=== PATIENT | female | born 1965 | race African-American/Black ===

== ENCOUNTER 2016-09-15 12:47 | Observation (INO) | payer OTHER ==
[~2016-09-15] VITALS: Ht 157.5 cm; Wt 133.7 kg
[~2016-09-15 12:47] MED LIST: ACCOLATE20 MG PO; ALEVE220 MG PO; AMBIEN10 MG PO; ATORVASTATIN CA40 MG PO; ATRIPLA TABLET1 EACH PO; CEFDINIR300 MG PO; CELEXA40 MG PO; COMBIGAN O20 DROP/5 BOTH EYES; DEPRESSION MED; DOXEPIN HCL150 MG PO; ENDOCET 5-3251 EACH PO; ERGOCALCIF50000 UNIT PO; FENOFIBRATE160 M1 PO; FETZIMA40 MG PO; FETZIMA80 MG PO; HUMULIN N100 UNIT/2 SC; IBUPROFEN800 MG PO; INDOCIN25 MG PO; IRON325 M1 PO; LEVAQUIN500 MG PO; LEVEMIR FL100 UNIT/1 SC; LEVOTHYROXINE125 MCG PO; LIDODERM 5% P1 PATCH TD; MORPHINE SULFAT30 M2 PO; MS CONTIN,ORAMO30 MG PO; OMEPRAZOLE20 M2 PO; OMEPRAZOLE20 MG PO; PERCOCET 5/31 TABLET PO; PREDNISONE50 MG PO; PROAIR HFA8.5 GM IH; PROVENTIL,2.5 MG/0.5 IH; PYRIDIUM200 MG PO; RISPERDAL2 MG PO; RISPERIDONE1 MG PO; ST. JOSEPH ASPI81 MG PO; TRAVATAN Z5 ML BOTH EYES; TRAVOPROST 0.02.5 ML BOTH EYES; TRIUMEQ TABLET1 EACH PO; TYLENOL WITH C1 EACH PO; ULTRACET1 TABLET PO; VALIUM5 MG PO; VENTOLIN HFA18 GM IH; ZESTRIL2.5 MG PO; ZOFRAN4 MG PO
[2016-09-15 13:53] LABS: HEMATOCRIT 39.7 % (36.0-46.0); MCH 30.9 PG (29.0-34.0); MCHC 32.5 G/DL (30.0-36.0); PLATELET COUNT 272 K/uL (156-360); RBC DIS.WIDTH-SD 45.4 % (39-53); RED BLOOD COUNT 4.18 M/uL (3.80-5.20); WHITE BLOOD COUNT 13.5 K/uL (4.1-10.2)
[2016-09-15 14:06] LABS: CHLORIDE 107 mEq/L (99-109); POTASSIUM 4.1 mEq/L (3.7-5.4); SODIUM 141 mEq/L (136-147)
[2016-09-15 14:08] LABS: GLUCOSE 97 mg/dL (70-99)
[2016-09-15 14:09] LABS: ANION GAP 9 MEQ/L (2-14)
[2016-09-15 14:12] LABS: GFR ESTIMATE (CALCULATED) > 59 mL/min/
[2016-09-15 14:13] LABS: UREA NITROGEN (BUN) 7 mg/dL (9-23)
[2016-09-15 14:16] LABS: TROP-I INTERPRETATION NEGATIVE; TROPONIN-I < 0.01 ng/mL (0.0-0.30)
[2016-09-15] MEDS ORDERED: ZESTRIL40 MG PO (15:53)
[2016-09-15] MEDS ORDERED: LAMICTAL100 MG PO (15:54)
[2016-09-15] MEDS ORDERED: PROAIR HFA8.5 GM IH (15:59)
[2016-09-15] MEDS ORDERED: FLOVENT DISKUS1 DIS1 IH (15:59)
[2016-09-15] MEDS ORDERED: ULTRAVATE 0.05%15 GM TP (15:59)
[2016-09-15 17:52] VITALS: BP 145/90
[2016-09-15 18:12] LABS: HDL CHOLESTEROL 44 MG/DL (Desirable>=50); LDL CHOLESTEROL 89 mg/dL (Desirable<100); NON-HDL CHOLESTEROL 117 mg/dL (Desirable<160); TOTAL CHOLESTEROL 161 mg/dL (Desirable<200); TRIGLYCERIDES 141 MG/DL (Normal: <150)
[2016-09-15 19:33] VITALS: BP 141/76
[2016-09-15 20:39] LABS: TROP-I INTERPRETATION NEGATIVE; TROPONIN-I < 0.01 ng/mL (0.0-0.30)
[2016-09-15 23:56] VITALS: BP 106/55
[2016-09-16 01:27] LABS: TROP-I INTERPRETATION NEGATIVE; TROPONIN-I < 0.01 ng/mL (0.0-0.30)
[2016-09-16 06:34] LABS: HEMATOCRIT 37.5 % (36.0-46.0); MCH 30.7 PG (29.0-34.0); MCHC 31.7 G/DL (30.0-36.0); MCV 96.6 FL (83-99); MEAN PLAT.VOLUME 9.2 uM^3 (9.5-12.4); PLATELET COUNT 237 K/uL (156-360); RBC DIS.WIDTH-CV 13.2 % (11.8-14.6); RBC DIS.WIDTH-SD 47.2 % (39-53); RED BLOOD COUNT 3.88 M/uL (3.80-5.20); WHITE BLOOD COUNT 11.5 K/uL (4.1-10.2)
[2016-09-16 06:51] LABS: ANION GAP 5 MEQ/L (2-14); CHLORIDE 104 MEQ/L (99-109); GFR ESTIMATE (CALCULATED) > 59 mL/min/; GLUCOSE 104 mg/dL (70-99); POTASSIUM 3.8 MEQ/L (3.7-5.4); SAMPLE HEMOLYSIS CHECK 0; SAMPLE ICTERIC CHECK 0; SAMPLE LIPEMIA CHECK 0; SODIUM 138 MEQ/L (136-147); UREA NITROGEN (BUN) 10 mg/dL (9-23)
[2016-09-16 07:00] LABS: PROTHROMBIN TIME 10.6 (9.2-11.2); PTT 28.4 (25-32)
[2016-09-16 07:27] VITALS: BP 117/70
== END 2016-09-16 11:33 | disposition home or self-care (01) ==
LOC: EME 12:47 → EDOF 16:33 → 5WEST 16:33
PROVIDERS: Internal Medicine
DX: R07.9 Chest pain, unspecified (principal); F32.9 Major depressive disorder, single episode, unspecified; F41.9 Anxiety disorder, unspecified; J45.909 Unspecified asthma, uncomplicated; Z21 Asymptomatic human immunodeficiency virus [HIV] infection status
CPT/HCPCS: 71020; 80048; 80061; 84484; 85027; 85379; 85610; 85730; 93005; 94640; 94640 76; 99202; 99281; 99285; G0378; J1650

== ENCOUNTER 2018-01-26 12:33 | Inpatient (IN) | payer OTHER ==
[~2018-01-26] VITALS: Ht 157.5 cm; Wt 121.0 kg
[~2018-01-26 12:33] MED LIST changes: +FLOVENT DISKUS1 DIS1 IH; +LAMICTAL100 MG PO; +SEROQUEL100 MG PO; +ULTRAVATE 0.05%15 GM TP; +ZESTRIL40 MG PO
[2018-01-26 13:38] LABS: HEMATOCRIT 34.4 % (36.0-46.0); HEMOGLOBIN 11.3 G/DL (11.9-15.5); MCH 31.1 PG (29.0-34.0); MCHC 32.8 G/DL (30.0-36.0); MCV 94.8 FL (83-99); PLATELET COUNT 227 K/uL (156-360); RBC DIS.WIDTH-CV 13.6 % (11.8-14.6); RBC DIS.WIDTH-SD 47.5 % (39-53); RED BLOOD COUNT 3.63 M/uL (3.80-5.20); WHITE BLOOD COUNT 13.1 K/uL (4.1-10.2)
[2018-01-26] MEDS ORDERED: FETZIMA40 MG PO (13:43)
[2018-01-26] MEDS ORDERED: DESYREL100 MG PO (13:44)
[2018-01-26] MEDS ORDERED: ARIPIPRAZOLE10 MG PO (13:45)
[2018-01-26 13:47] LABS: ALBUMIN 3.8 g/dL (3.2-4.8); CHLORIDE 110 mEq/L (99-109); POTASSIUM 3.7 mEq/L (3.7-5.4); SODIUM 142 mEq/L (136-147)
[2018-01-26 13:49] LABS: GLUCOSE 106 mg/dL (70-99)
[2018-01-26 13:51] LABS: TOTAL BILIRUBIN 0.5 mg/dL (0.0-1.0)
[2018-01-26 14:05] LABS: ALKALINE PHOSPHATASE 86 IU/L (3-129); ALT (GPT) 21 IU/L (3-49); AST (GOT) 13 IU/L (2-34); CREATININE 0.6 mg/dL (0.6-1.3); GFR ESTIMATE (CALCULATED) > 59 mL/min/; QUANTITATIVE HCG < 4.0 MIU/ML; UREA NITROGEN (BUN) 6 mg/dL (9-23)
[2018-01-26 14:19] LABS: TROP-I INTERPRETATION NEGATIVE; TROPONIN-I < 0.01 ng/mL (0.0-0.30)
[2018-01-26 15:33] LABS: APPEARANCE CLEAR ((CLEAR)); BILIRUBIN NEGATIVE; BLOOD MODERATE; COLOR YELLOW ((YELLOW)); GLUCOSE (STRIP) NEGATIVE; KETONES NEGATIVE; LEUKOCYTES NEGATIVE; NITRITE NEGATIVE; PROTEIN (STRIP) NEGATIVE; SPECIFIC GRAVITY 1.019 (1.000-1.030); UROBILINOGEN 0.2 MG/DL (0.2-1.0)
[2018-01-26 15:37] LABS: BACTERIA NONE SEEN /HPF; EPITHELIAL CELLS RARE /HPF; MUCUS TRACE /LPF; RED BLOOD CELLS 0-5 /HPF (0-5); UCUL ADDED? NO; WHITE BLOOD CELLS 0-5 /HPF (0-5)
[2018-01-26] MEDS ORDERED: LAMOTRIGINE100 MG PO (17:57)
[2018-01-26] MEDS ORDERED: ZOLPIDEM TARTRA10 MG PO (17:58)
[2018-01-26] MEDS ORDERED: LISINOPRIL40 MG PO (18:00)
[2018-01-26] MEDS ORDERED: ERGOCALCIF50000 UNIT PO (18:00)
[2018-01-26] MEDS ORDERED: METFORMIN HCL500 M1 PO ×3 (18:01→18:10)
[2018-01-26] MEDS ORDERED: IBUPROFEN800 MG PO (18:01)
[2018-01-26] MEDS ORDERED: ENDOCET 5-3251 EACH PO (18:03)
[2018-01-26] MEDS ORDERED: MORPHINE SULFAT30 M2 PO (18:04)
[2018-01-26 18:22] VITALS: BP 175/88
[2018-01-26 19:28] VITALS: BP 139/72
[2018-01-26 20:17] LABS: TROP-I INTERPRETATION NEGATIVE; TROPONIN-I < 0.01 ng/mL (0.0-0.30)
[2018-01-26 23:05] VITALS: BP 138/68
[2018-01-27] VITALS (7 sets, daily range): BP systolic 118–155; BP diastolic 68–86
[2018-01-27 02:00] LABS: HEMATOCRIT 32.5 % (36.0-46.0); HEMOGLOBIN 10.7 G/DL (11.9-15.5); MCH 31.5 PG (29.0-34.0); MCHC 32.9 G/DL (30.0-36.0); MCV 95.6 FL (83-99); PLATELET COUNT 215 K/uL (156-360); RBC DIS.WIDTH-CV 13.6 % (11.8-14.6); RBC DIS.WIDTH-SD 47.9 % (39-53); WHITE BLOOD COUNT 12.1 K/uL (4.1-10.2)
[2018-01-27 02:16] LABS: CHLORIDE 110 mEq/L (99-109); POTASSIUM 3.7 mEq/L (3.7-5.4); SODIUM 141 mEq/L (136-147)
[2018-01-27 02:18] LABS: GLUCOSE 102 mg/dL (70-99)
[2018-01-27 02:22] LABS: CREATININE 0.7 mg/dL (0.6-1.3); GFR ESTIMATE (CALCULATED) > 59 mL/min/; TROP-I INTERPRETATION NEGATIVE; TROPONIN-I < 0.01 ng/mL (0.0-0.30); UREA NITROGEN (BUN) 10 mg/dL (9-23)
[2018-01-28 05:46] VITALS: BP 146/85
[2018-01-28 07:22] VITALS: BP 144/76
[2018-01-28 11:22] VITALS: BP 154/66
[2018-01-28] MEDS ORDERED: AMLODIPINE BES2.5 MG PO (14:39)
== END 2018-01-28 15:39 | disposition home or self-care (01) | DRG 309 ==
LOC: EME 12:33 → ENRESERV 16:53 → 4EAST 17:02 → EDOF 17:02 → 4EAST 18:10 → ENPENDDIS 01-28 → 4EAST 01-28 15:39
PROVIDERS: Internal Medicine
DX: R00.1 Bradycardia, unspecified (principal); D72.828 Other elevated white blood cell count; E11.9 Type 2 diabetes mellitus without complications; G89.29 Other chronic pain; T50.905A Adverse effect of unspecified drugs, medicaments and biological substances, initial encounter; Z21 Asymptomatic human immunodeficiency virus [HIV] infection status; E66.01 Morbid (severe) obesity due to excess calories; K21.9 Gastro-esophageal reflux disease without esophagitis; H40.9 Unspecified glaucoma; F41.9 Anxiety disorder, unspecified; F32.9 Major depressive disorder, single episode, unspecified; I10 Essential (primary) hypertension; Z87.891 Personal history of nicotine dependence; Z68.42 Body mass index [BMI] 45.0-49.9, adult
CPT/HCPCS: 36415; 71046; 80048; 80053; 80061; 81003; 82948; 83880; 84484; 84702; 85025; 85027; 86355 90; 86359 90; 86360 90; 86480 90; 86780; 87491; 87536; 87591; 93005; 93306; 94799; 99281; 99285; J0461; J1644; J1885; J7030